=== PATIENT | female | born 1995 ===

== ENCOUNTER → 2023-11-08 17:06 | Outpatient (CLI) | payer OTHER, SELFPAY ==
--- NOTE | 2023-11-08 | DI.MRI.S_ITS ---
PROCEDURE: MR KNEE LT WO CON INDICATIONS: TWISTING KNEE INJURY TECHNIQUE: Noncontrast sagittal PD fast spin echo and T2 fast spin echo with fat saturation, sagittal 3-D FLASH with fat saturation; coronal T1 spin echo and PD fast spin echo with fat saturation, and axial PD fast spin echo with fat saturation through the knee. COMPARISON: None. FINDINGS: Image quality: Excellent. Menisci: The medial and lateral menisci demonstrate normal morphology and internal signal. The meniscal root ligaments appear intact. Cruciate ligaments: The anterior cruciate ligament is torn, which may be partial. The posterior cruciate ligament is intact. Medial structures: There is grade 2-3 tear of the medial collateral ligament. The semimembranosus tendon insertions and meniscocapsular junction appear intact. Visualized portions of the pes anserinus tendons appear normal. No abnormal bursal fluid. Lateral structures: The lateral collateral ligament is intact. There is partial tear of the biceps femoris tendon. The popliteus tendon appears normal. Iliotibial band appears normal. Anterior structures: The quadriceps and patellar tendons appear intact. Patellar alignment is normal. No femoral trochlear dysplasia or ventral trochlear prominence. No edema in the infrapatellar fat pad. Bones and cartilage: There is bone marrow edema consistent with bone contusion in the posterior aspect of the lateral tibial plateau. No fractures. The cartilage of the medial and lateral femorotibial compartments, as well as the patellofemoral compartment, appears normal in thickness. Joint space: There is small knee joint effusion. No Wesley's cyst. Normal appearing synovial plicae are incidentally noted. IMPRESSION: 1. ACL tear, which may be partial. 2. Grade II-III MCL tear. 3. Partial tear of the biceps femoris tendon. 4. Bone contusion in the posterior aspect of the lateral tibial plateau. 5. Small knee joint effusion. Dictated by: Peng Leyva M.D. on 11/09/2023 at 10:47 Approved by: Peng Leyva M.D. on 11/09/2023 at 23:09
== END ==
DX: S83.512A Sprain of anterior cruciate ligament of left knee, initial encounter (principal); S83.412A Sprain of medial collateral ligament of left knee, initial encounter; S76.812A Strain of other specified muscles, fascia and tendons at thigh level, left thigh, initial encounter; S80.02XA Contusion of left knee, initial encounter; M25.462 Effusion, left knee; X50.1XXA Overexertion from prolonged static or awkward postures, initial encounter
CPT/HCPCS: 73721